=== PATIENT | male | born 1955 | race Caucasian/White ===

== ENCOUNTER → 2017-04-09 | Outpatient (CLI) | payer MEDICARE, OTHER ==
[2016-03-02 05:22] VITALS: BP 134/81
[~2017-04-09] MED LIST: ALPR1TAB6 PO; LORA2TAB PO; OXYC-323 PO; RIVA10TA PO
--- NOTE | 2017-04-09 18:22 | RAD ---
Left lower extremity venous ultrasound, 04/09/2017: History: Left leg pain, edema Duplex evaluation of the major deep veins in the left lower extremity was performed including grayscale, color-flow and spectral Doppler analysis. Comparison is made to a study from 12/22/2011. The left common femoral vein is widely patent. The visualized portion of the greater saphenous vein at the saphenofemoral junction is patent. The superficial femoral vein in the upper thigh is patent. In the mid and distal thigh there are filling defects compatible with nonocclusive thrombus. Occlusive thrombus was present in these regions on the previous study. The current findings suggest interval partial recanalization. The left popliteal vein is patent. It was occluded on the previous exam. Patent posterior tibial veins are present in the left calf. Incidental note is made of occlusive thrombus in the left lesser saphenous vein. IMPRESSION: 1. Interval recanalization of the left femoral and popliteal veins since 12/22/2011. There are nonocclusive filling defects in the left femoral vein in the mid and distal left thigh. This may represent residual thrombus, although recurrent DVT cannot be excluded. 2. Occlusive thrombus in the left lesser saphenous vein. Note: The lead nuclear medicine technologist called this report to the ordering physician's office at the time of the exam.
== END | disposition home or self-care (01) ==
LOC: US 14:49
PROVIDERS: ATTEND Family Medicine
DX: I82.812 Embolism and thrombosis of superficial veins of left lower extremity (principal); R60.0 Localized edema
CPT/HCPCS: 93971

== ENCOUNTER → 2018-04-29 | Outpatient (CLI) | payer MEDICARE ==
[2016-03-02 05:22] VITALS: BP 134/81
[~2018-04-29] MED LIST changes: +IOHEXOL 240 MG/ML 50ML VIAL. PO ONE; -OXYC-323 PO; +OXYC1TAB15 PO
--- NOTE | 2018-04-29 14:52 | RAD ---
CT abdomen and pelvis with oral contrast only 04/29/2018 Clinical indication: Abdominal pain. COMPARISON: CT abdomen pelvis 03/11/2015. TECHNIQUE: Multiple CT images of the abdomen and pelvis were obtained without intravenous contrast. Oral contrast was administered. *One or more of the following individualized dose reduction techniques were utilized for this examination: 1. Automated exposure control. 2. Adjustment of the mA and/or kV according to patient size. 3. Use of iterative reconstruction technique. FINDINGS: Heart size is normal. There is stable minimal subpleural scarring in the posterior left lung base. Evaluation of the solid abdominal pelvic viscera, lymphadenopathy and vasculature is limited in the absence of intravenous contrast. There is diffuse hepatic steatosis. There is ill-defined subcentimeter hypodensities in hepatic segment 7 series 2/image 15 and peripheral hepatic segment 4A series 2/image 14, hepatic segment 6 image 23 which are incompletely characterized without contrast, though a stable since 2015 and likely benign. Unenhanced contours of the spleen, adrenal glands are grossly unremarkable. Cholelithiasis in a nondilated gallbladder. Mild fatty atrophy of the pancreas. Left kidney is absent. Right kidney present without hydronephrosis or nephrolithiasis. Abdominal aorta is normal in caliber trace calcified plaque. No retroperitoneal or mesenteric lymphadenopathy. Small and large bowel loops are normal in caliber without obstruction. No abdominal free fluid. No pneumoperitoneum. A few distal colonic diverticula without diverticulitis. Mildly distended and unopacified urinary bladder unremarkable. Prostate unremarkable. 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 No iliac or inguinal lymphadenopathy. There are no destructive osseous lesions. IMPRESSION: 1. No noncontrast CT evidence of acute abdominal or pelvic process. 2. Hepatic steatosis. 3. 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 4. Cholelithiasis. Electronically signed by: Dwayne Rodriguez MD (04/29/2018 2:48 PM) [id number]
== END | disposition home or self-care (01) ==
LOC: CT 09:00
PROVIDERS: ATTEND Family Medicine
DX: K76.0 Fatty (change of) liver, not elsewhere classified (principal); K80.20 Calculus of gallbladder without cholecystitis without obstruction; N32.89 Other specified disorders of bladder; K57.30 Diverticulosis of large intestine without perforation or abscess without bleeding; K86.89 Other specified diseases of pancreas; I70.0 Atherosclerosis of aorta
CPT/HCPCS: 74176; Q9966

== ENCOUNTER 2019-04-13 09:38 | Day surgery (SDC) | payer BC ==
[~2019-04-13] VITALS: Ht 162.6 cm; Wt 99.5 kg
[~2019-04-13 09:38] MED LIST changes: +HYDROmorphone 2 MG/ML VIAL IV PRN; -IOHEXOL 240 MG/ML 50ML VIAL. PO ONE; +IV RINGERS,LACTATED 1000ML 1,000 ML IV SCH; +LIDOCAINE 1% PF 2 ML VIAL. ID PRN; +MORPHINE SULFATE 2 MG/ML VIAL. IV PRN; +ONDANSETRON PF 4 MG/2 ML VIAL. IV PRN; +PROCHLORPERAZINE 10 MG/2 ML VIAL. IV PRN; +fentaNYL PF VIAL 100 MCG/2 ML VIAL IV PRN
[2019-04-13] MEDS ORDERED: ONDANSETRON PF 4 MG/2 ML VIAL. ONE ×2 (10:26→11:04)
[2019-04-13] MEDS ORDERED: PROPOFOL 20 ML IV ONE (10:26)
[2019-04-13] MEDS ORDERED: DEXAMETHASONE SOD PHOS 4 MG/ML VIAL ONE ×2 (10:26→11:04)
[2019-04-13] MEDS ORDERED: GLYCOPYRROLATE 1 MG/5 ML VIAL. ONE (10:26)
[2019-04-13] MEDS ORDERED: LIDOCAINE 2% PF 5 ML VIAL. ONE (10:26)
[2019-04-13] MEDS ORDERED: ROCURONIUM 50 MG/5 ML VIAL. ONE (10:27)
[2019-04-13] MEDS ORDERED: MIDAZOLAM HCL/PF 2 MG/2 ML VIAL. ONE (10:28)
[2019-04-13] MEDS ORDERED: fentaNYL PF VIAL 100 MCG/2 ML VIAL ONE ×3 (10:28→13:13)
[2019-04-13] MEDS ORDERED: ceFAZolin 2GM PREMIX 2 GM/50 ML BAG IV ONE (11:00)
[2019-04-13] MEDS ORDERED: BUPIVACAINE MPF 0.5% 30 ML VIAL. ONE (11:25)
[2019-04-13] MEDS ORDERED: SURGICEL HEMOSTAT 4X8 EACH. ONE (11:25)
[2019-04-13] MEDS ORDERED: IOHEXOL 300 MG/ML 50 ML VIAL. ONE (11:25)
[2019-04-13] MEDS ORDERED: NEOSTIGMINE METHYLSULFATE 5 MG/5 ML SYRINGE. ONE (12:39)
[2019-04-13] MEDS ORDERED: DESFLURANE 61 TO 120 MINUTES IH ONE (12:50)
--- NOTE | 2019-04-13 12:53 | PDOC4 ---
Operative Note Operative Note Operative Note: Preoperative Diagnosis: Symptomatic cholelithiasis Postoperative Diagnosis: Same Procedure: Laparoscopic cholecystectomy with intraoperative cholangiogram Surgeons: Adarsh Police Manager: Helen SON Anesthesia: Gen. Estimated Blood Loss: 10 mL Specimen: Gallbladder to pathology Drains: None Complications: None Indications: The patient is a 63-year-old male who is been experiencing recurrent upper abdominal pain consistent with biliary colic. Surgical treatment was offered by means of a laparoscopic cholecystectomy. The risks of surgery were discussed which include bleeding, infection, bile duct injury, bile leak, pain, the potential for additional surgeries or procedures. The patient understands and would like to proceed. Description: The patient was taken to the operating room and laid supine on the operating table. General anesthesia was performed. The abdomen was prepped with ChloraPrep and draped in a standard surgical fashion. A small supraumbilical incision was made with a scalpel. The Veress needle was then inserted and a pneumoperitoneum was then created. A 5 mm trocar was then inserted and the laparoscope was introduced. In the upper midabdomen a 5 mm trocar was inserted and in the right upper quadrant one 2.3 mm mini lap grasper and one 5 mm trocar were inserted. The gallbladder was retracted cephalad. The cystic duct was dissected free from surrounding tissues. One clip was placed on the duct near the gallbladder junction. An opening was made in the duct and a cholangiocatheter placed within and secured with a clip. Using contrast dye and fluoroscopy an intraoperative cholangiogram was performed that appeared unremarkable. The clip and catheter were then withdrawn. Three clips were placed on the cystic duct and it was divided. The cystic artery was then iden tified, dissected free, doubly clipped and divided as well. The gallbladder was then mobilized away from the liver with cautery. The umbilical 5 millimeter trocar was exchanged for an 11 millimeter trocar. The gallbladder was then placed in an endoscopic bag and extracted at the umbilical trocar site. The fascia there was closed with an 0 Vicryl suture. All blood and irrigation fluid was suctioned and hemostasis was good. The remaining ports were removed and the pneumoperitoneum was relieved. The skin incisions were injected with half percent Marcaine with epinephrine, and all were closed using 4-0 Monocryl suture. Steri-Strips and dressings were then applied. The patient tolerated the procedure well and was sent to the recovery room in stable condition. At the end of the case all counts were correct. JANELL POLANCO MD Apr 13, 2019 12:53
--- NOTE | 2019-04-13 12:55 | DISCH ---
DISCHARGE INSTRUCTIONS Condition on Discharge Condition on Discharge: Stable Activity After Discharge Activity Instructions for Disc: Other, see below (no lifting over 20 lbs X 2 weeks) Diet after Discharge Diet after Discharge: Regular Wound Incision Care Wound/Incision Care: Other, see below (may remove bandaids and shower tomorrow, steristrips fall off on their own) Follow-Up Follow up with: Dr Polanco in 2 weeks, call for appt [phone] JANELL POLANCO MD Apr 13, 2019 12:55
[2019-04-13] MEDS ORDERED: HYDROcodone/APAP 5/325MG 1 TAB TABLET PO ONE ×2 (13:00)
[2019-04-13] MEDS: fentaNYL PF VIAL 100 MCG/2 ML VIAL IV PRN ×2 (13:14→13:21)
--- NOTE | 2019-04-13 13:22 | RAD ---
EXAM: INTRAOPERATIVE CHOLANGIOGRAM. HISTORY: Intraoperative cholangiogram with cholecystectomy. COMPARISON: None. FINDINGS: 2 fluoroscopic images are obtained intraoperatively during injection of the cystic duct remnant after cholecystectomy. There are no filling defects to suggest retained stones. The common duct is not dilated. Fluoroscopy time 7 seconds. IMPRESSION: 1. No evidence of retained stones. Electronically signed by: Vianey Coffman MD (04/13/2019 1:19 PM) [facility]
[2019-04-13] MEDS ORDERED: MORPHINE SULFATE 2 MG/ML VIAL. ONE (13:36)
[2019-04-13 13:45] VITALS: BP 118/74
[2019-04-13] MEDS ORDERED: oxyCODONE/APAP 5/325 1 TAB TABLET PO ONE (14:00)
--- NOTE | 2019-04-16 10:07 | PATHOLOGY ---
[facility] Accession Number: [id number] . 01 Material submitted: . gallbladder - GALLBLADDER AND CONTENTS . 01 Clinical history: . Cholelithiasis . 02 Diagnosis: Gallbladder, cholecystectomy: - Cholelithiasis. - Chronic cholecystitis. 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 02 Comment: There is no evidence of malignancy. 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 02 Electronically signed: . Stepan Camarillo MD, Pathologist NPI- [id number] . 01 Gross description: . Received in formalin labeled "Bates, Suleman, gallbladder and contents," is an intact gallbladder measuring 9.1 x 3.6 x 2.2 cm in greatest dimensions. The serosal surface is extensively covered in yellow-brown adipose tissue, displaying a small amount of yellow-green coloration at the fundal aspect. Opening the specimen reveals a granular, dark green-lin mucosa measuring 0.1 cm in thickness, with a gallbladder wall thickness of up to 0.4 cm including attached adipose tissue. Multiple pale yellow possible cholesterol polyps are noted on the mucosal surface, ranging from 0.1 to 0.2 cm in maximum dimension and extending to within 1.1 cm of the infundibulum. Two black, multifaceted calculi are present within the specimen, measuring 0.3 cm and 0.7 cm in maximum dimension. Gross photographs are taken. Tank Worker sections of the infundibulum, body and fundus are submitted in cassette A1, to representatively include the possible cholesterol polyps. The specimen is requested to be returned to [facility] after sectioning. (DAC; 04/14/2019) XDC/XDC 04/15/2019 1645 Local . 02 Pathologist provided ICD-10: K80.10 . 02 CPT . 527539 Specimen Comment: A courtesy copy of this report has been sent to [phone], [phone] Specimen Comment: 08 Specimen Comment: Report sent to / DR GHOSH Performed at: 01 [facility] [address], [place] [id number] MD Frankie Evans MD Phone: [phone] Performed at: 02 [facility] [address], [place] [id number] MD Stepan Camarillo MD Phone: [phone]
== END 2019-04-13 14:48 | disposition home or self-care (01) ==
LOC: SURG 09:38
PROVIDERS: ATTEND Surgery
DX: K80.10 Calculus of gallbladder with chronic cholecystitis without obstruction (principal); F41.9 Anxiety disorder, unspecified; F17.210 Nicotine dependence, cigarettes, uncomplicated; E11.22 Type 2 diabetes mellitus with diabetic chronic kidney disease; N18.9 Chronic kidney disease, unspecified; Z98.890 Other specified postprocedural states; Z88.8 Allergy status to other drugs, medicaments and biological substances; Z86.73 Personal history of transient ischemic attack (TIA), and cerebral infarction without residual deficits; Z86.718 Personal history of other venous thrombosis and embolism; Z79.84 Long term (current) use of oral hypoglycemic drugs
CPT/HCPCS: 47563; 74300; A7015; J0696; J1100; J2001; J2250; J2270; J2405; J2704; J2710; J3010; J3490; J7030; Q9967

== ENCOUNTER → 2021-01-02 | Outpatient (CLI) | payer BC, MEDICARE ==
[~2021-01-02] MED LIST changes: -HYDROmorphone 2 MG/ML VIAL IV PRN; -IV RINGERS,LACTATED 1000ML 1,000 ML IV SCH; -LIDOCAINE 1% PF 2 ML VIAL. ID PRN; -MORPHINE SULFATE 2 MG/ML VIAL. IV PRN; -ONDANSETRON PF 4 MG/2 ML VIAL. IV PRN; -PROCHLORPERAZINE 10 MG/2 ML VIAL. IV PRN; -fentaNYL PF VIAL 100 MCG/2 ML VIAL IV PRN
--- NOTE | 2021-01-02 08:20 | RAD ---
EXAM: Soft tissue ultrasound, left lower back. HISTORY: Soft tissue mass/swelling left lower back/buttock. COMPARISON: None. FINDINGS: Sonographic evaluation was performed at the site of concern along the left lower back/butto ck. This reveals only normal subcutaneous and muscular tissues. No mass or collection is identified. IMPRESSION: 1. No mass or collection at the site of concern. Recommend ongoing clinical follow-up of palpable foc i. Electronically signed by: Vianey Coffman MD (01/02/2021 8:18 AM) [id number]
== END ==
LOC: US 06:46
PROVIDERS: ATTEND Family Medicine
DX: R22.2 Localized swelling, mass and lump, trunk (principal); Z68.33 Body mass index [BMI] 33.0-33.9, adult
CPT/HCPCS: 76881